=== PATIENT | female | born 1950 | race Caucasian/White ===

== ENCOUNTER 2019-10-21 00:35 | Outpatient (CLI) | payer OTHER, SELFPAY ==
[2019-10-21 16:39] LABS: SARS-CoV-2 RNA PCR Negative
== END 2019-10-21 00:36 | disposition home or self-care (01) ==
LOC: ANHCOVIDDT 00:35
PROVIDERS: Visit Provider Surgery Plastic and Reconstructive Surgery
DX: Z01.812 Encounter for preprocedural laboratory examination (principal); Z20.828 Contact with and (suspected) exposure to other viral communicable diseases
CPT/HCPCS: 87635; C9803; U0003

== ENCOUNTER 2019-10-21 08:30 | Outpatient (CLI) | payer OTHER, SELFPAY ==
--- NOTE | 2019-10-21 08:54 | ECG_ITS ---
Measurements Intervals [place] Rate: 62 P: 72 MA: 157 QRS: 26 QRSD: 98 T: 46 QT: 411 QTc: 420 Interpretive Statements SINUS RHYTHM INCOMPLETE RIGHT BUNDLE BRANCH BLOCK BORDERLINE T WAVE ABNORMALITY- ANTERIOR LEADS BORDERLINE ECG Electronically Signed On 10-21-2019 11:05:23 CDT by Osiel Christensen D.O.
[2019-10-21 09:28] LABS: Hematocrit 42.1 % (37.0-47.0); Hemoglobin 13.5 g/dL (12.0-15.0)
== END 2019-10-21 08:31 | disposition home or self-care (01) ==
PROVIDERS: Visit Provider Anesthesiology
DX: I45.10 Unspecified right bundle-branch block (principal); L57.4 Cutis laxa senilis
CPT/HCPCS: 36415; 85014; 85018; 93005

== ENCOUNTER 2019-10-24 00:46 | Day surgery (SDC) | payer OTHER, SELFPAY ==
[2019-10-17 15:50] VITALS: BMI 22.6
--- NOTE | 2019-10-23 13:15 | WPDANESEPPF ---
Anes - Initial Pre Proc Eval Procedure: Operation Date: 10/24/19 07:30 Proposed Procedures p Face Lift, - Xander Arrieta MD s Neck Lift - Xander Arrieta MD Date/Time: 10/23/19 13:15 Surgeon: Xander Arrieta MD Pre Op Diagnosis: Skin laxity Patient Data Age: 68 Gender: F Height: 5 ft 1 in Weight: 54.43 kg Allergies Allergy/AdvReac Type Severity Reaction Status Date / Time No Known Allergies Allergy Unverified 10/17/19 15:47 Home Medications Medication Instructions Recorded Confirmed Type raloxifene 60 mg PO DAILY 10/17/19 10/17/19 History Patient hx anesthesia problems: none Family hx anesthesia problems: none [facility] Past Medical History Medical History (Updated 10/23/19 @ 13:15 by Luis Armando Tolentino MD) History of varicose veins Peripheral vascular disease Social History Social History Smoking status: Never smoker Alcohol intake: never Gender identity (if verbalized by the patient): Female Anes - Eval Final PreProcedure Day of Procedure 10/23/19 13:15 Patient weight: normal Heart: regular rate and rhythm Lungs: clear to auscultation Airway: Mallampati scale class II Neurological: alert and oriented Last oral intake: >/= 8 hours ASA classification: II Emergent: no Anesthetic plan: proceed Anesthesia type and monitoring: general ETT and standard monitoring Informed Consent: The patient's anesthetic plan and its attendant risks and benefits were discussed with the patient/family/POA. Questions were solicited and answers provided to the satisfaction of the patient/family/POA.
[2019-10-24] VITALS (14 sets, daily range): BP systolic 109–161; BP diastolic 61–85; PULSE 79–101; RESP 12–18; TEMP 36.6–37.1; O2SAT 94–99
[2019-10-24] MEDS: LACTATED RINGERS 1,000 ML 30 ML IV CONT ×2 (06:45→11:53)
--- NOTE | 2019-10-24 07:06 | WPDHPUPDATE1 ---
History and Physical Update Update Date/Time: 10/24/19 07:06 History and Physical has been reviewed, including an updated exam of the patient. There are NO changes in the patient's condition. Risks, benefits, and alternatives have been discussed and questions answered. Patient agrees to proceed with procedure.
--- NOTE | 2019-10-24 07:20 | P.OP_ITS ---
Procedure Note - Detailed Date of procedure: 10/24/19 Pre-op diagnosis: Skin laxity Post-op diagnosis: same Procedure performed: Rhytidectomy Cervicoplasty Description of procedure: She was marked in the preoperative holding area. We explained asymmetries and limitations of the procedure in great detail. She was taken to the operating room placed supine on the operating room table. Anesthesia provided by anesthesiology and prepped and draped in a standard sterile fashion. Surgical time-out was taken. I used a spinal needle and tumescent solution to tumesced the face and neck for planned treatment. Fifteen blade used to make a submental incision just posterior to the crease. I elevated well-vascularized skin flaps no released retaining ligaments locally. I then divided between the platysma and elevated platysmal flaps and there was a minimal sub platysmal adiposity and none was removed. I released the platysma at the level of the hyoid bone transversely. I then elevated skin flaps bilaterally superficial leaving these well- vascularized through a retro tragal approach. Once adequate released I had anesthesia wake her some to elevate the blood pressure and make sure no active bleeding. I copiously irrigated with saline solution. Bilateral I did a SMAS plication at the inferior edge of the zygoma. This was 3-0 PDS in 2 separate layers. When I re-examined the submental platysma had previously had significant overlap now still small overlap much improved. I did a [id number] type repair using 3-0 PDS. Just prior to closure this from the left side I placed a 10 mm Ace which then passed through the platysma and sat in the sub platysmal space as well as above the platysma on the left side. Laterally 1 cm below 1 cm posterior to the mandibular angle I incised a platysmal window. I put this under gentle tension to the mastoid fascia using 3-0 PDS. On the right side I placed a 10 mm Ace drain in the subcutaneous space. Both drains were sutured into place with 3-0 Vicryl. I verified the contour the face as well as there is no bleeding. Then proceeded to closure. Skin was trimmed as necessary. Along the hairline I closed with 5 0 nylon as well as preauricular. I then went postauricular with 5 0 chromic. Xeroform fluffs and face-lift tape were placed. She tolerated the procedure well. Anesthesia: GETA Surgeon: Xander Arrieta MD Estimated blood loss (mL): 40 Drains: Yes (Bilateral Ace left is sub platysmal centrally) Packing: No Pathology: none sent Complications: No immediate complications Condition: stable Disposition: PACU
[2019-10-24] MEDS: BACITRACIN OINTMENT 15 GM TUBE 1 APPLIC TOPICAL (07:22)
[2019-10-24] MEDS: ceFAZolin 2 GM/D5W 50 ML 2 GM/50 ML BAG IVPB (07:22)
[2019-10-24 07:31] LABS: Urine Cotinine NEGATIVE
--- NOTE | 2019-10-24 11:19 | SUR.OPER ---
urine:[id number]
--- NOTE | 2019-10-24 11:25 | SUR.OPER ---
ebl:40cc
--- NOTE | 2019-10-24 12:40 | SUR.PHASEI ---
1235 - family updated on pt's status.
[2019-10-24] MEDS: LACTATED RINGERS 1,000 ML 125 ML IV CONT (13:43)
[2019-10-24] MEDS: MORPHINE SULFATE 2 MG/ML INJ IV PUSH ×3 (14:59→20:02)
--- NOTE | 2019-10-24 15:27 | OBPPTRN ---
Patient transferred to room #276 via Bed. Oriented to unit, room, information board, admission packet and security measures. Patient verbalizes understanding.
--- NOTE | 2019-10-24 16:57 | WPDPN ---
Progress Note: A&P Assessment and Plan (1) Encounter for cosmetic surgery: Code(s): Z41.1 - Encounter for cosmetic surgery Status: Acute Assessment and Plan: She is doing very well. Her symptoms postop appear to be related to local affected her wearing off. We will monitor overnight. Advanced diet. Ambulate. (2) History of varicose veins: Code(s): Z86.79 - Personal history of other diseases of the circulatory system Status: Acute (3) Osteoporosis: Code(s): M81.0 - Age-related osteoporosis without current pathological fracture Status: Acute Review of Systems Review of Systems: All systems reviewed & are unremarkable except as noted in HPI and below Exam Narrative: Exam Narrative: Normal gross vision. PERRLA EOMI. Just a slight weakness with left eyelid closure which per her nursing is a significant improvement. She is able to smile with just a slight asymmetry. She describes decreased sensation on the left side of her face. No signs of infection. No hematoma. No seroma. Const: General: no acute distress Orientation/consciousness: oriented to person HENMT: Head: normal to inspection Ears: external ears normal General nose exam: Normal external nose present Face and sinus: normal facial exam Eyes: General: appearance normal, both eyes and all related structures Periorbital: periorbital findings normal Eyelids: eyelids normal Conjunctivae: conjunctivae normal Neck: Neck: normal visual inspection Chest: Chest palpation & inspection: normal inspection of the chest Resp: Effort & Inspection: normal respiratory effort and able to speak in complete sentences GI: Inspection: normal to inspection Neuro: General: oriented to person Psych: Appearance: grossly normal Mental Status: mental status grossly normal Objective Data Vital Signs Vital Signs: Vital Signs - 24 hr 10/24/19 07:00 10/24/19 11:53 10/24/19 12:00 Temperature 36.8 C 37.1 C Pulse Rate 79 95 94 Respiratory Rate 18 14 14 Blood Pressure 161/81 H 139/85 135/84 Pulse Oximetry 99 99 99 10/24/19 12:15 10/24/19 12:30 10/24/19 12:45 Temperature Pulse Rate 89 89 Respiratory Rate 14 12 12 Blood Pressure 133/85 124/80 109/72 Pulse Oximetry 99 94 94 10/24/19 13:18 10/24/19 13:30 10/24/19 13:45 Temperature 36.8 C Pulse Rate 89 95 97 Respiratory Rate 16 16 16 Blood Pressure 129/68 126/76 124/73 Pulse Oximetry 95 94 95 10/24/19 14:00 10/24/19 14:30 10/24/19 15:00 Temperature 36.6 C Pulse Rate 101 H 94 87 Respiratory Rate 16 16 16 Blood Pressure 113/61 129/81 129/73 Pulse Oximetry 97 97 97 Intake/Output Intake/Output: Intake & Output 10/21/19 10/22/19 10/23/19 10/24/19 23:59 23:59 23:59 23:59 Intake Total 350 Output Total 30 Balance 320 Meds/Results Medications: Active Medications Generic Name Dose Route Start Last Admin Trade Name Freq PRN Reason Stop Dose Admin Docusate Sodium 100 mg 10/24/19 21:00 Colace Capsule PO Q12HR ZANE Enoxaparin Sodium 40 mg 10/25/19 09:00 Lovenox SUB-Q DAILY ZANE Lactated Ringer's 1,000 mls @ 125 mls/hr 10/24/19 11:50 10/24/19 13:43 Lr - Lactated Ringers Iv IV CONT 125 mls/hr .Q8H ZANE Administration Morphine Sulfate 2 mg 10/24/19 11:49 10/24/19 14:59 Morphine Sulfate Inj IV PUSH 2 mg Q2H PRN Administration Pain Ondansetron HCl 4 mg 10/24/19 11:49 Zofran Inj IV PUSH Q6H PRN Nausea Oxycodone/Acetaminophen 1 - 2 tablet 10/24/19 11:49 Percocet 5-325 Mg PO Q6H PRN Pain Labs Labs: Laboratory Results - last 24 hr 10/24/19 06:49 Cotinine Negative
[2019-10-25 04:20] VITALS: BP 142/78; PULSE 78; RESP 16; TEMP 36.6
[2019-10-25] MEDS: MORPHINE SULFATE 2 MG/ML INJ IV PUSH ×2 (04:35→08:09)
--- NOTE | 2019-10-25 06:40 | WPDPN ---
Progress Note: A&P Assessment and Plan (1) Encounter for cosmetic surgery: Code(s): Z41.1 - Encounter for cosmetic surgery Status: Acute Assessment and Plan: Will discharge home today when: Ambulating Tolerating p.o. Pain controlled Today we had a lengthy discussion about her care. What monitor for. What she should do at home. That we are available at any time with questions or concerns. This was a lengthy open-ended conversation making sure answered all of her questions to her satisfaction. We will see her back Wednesday. (2) History of varicose veins: Code(s): Z86.79 - Personal history of other diseases of the circulatory system Status: Acute (3) Osteoporosis: Code(s): M81.0 - Age-related osteoporosis without current pathological fracture Status: Acute Time Spent With Patient Time with patient: 15 - 25 minutes Review of Systems Review of Systems: All systems reviewed & are unremarkable except as noted in HPI and below Exam Const: General: comfortable, no acute distress, alert and awake; No acute distress Orientation/consciousness: oriented to person HENMT: Head: normal to inspection Ears: external ears normal General nose exam: Normal external nose present Face and sinus: normal facial exam Other: Cranial nerves 2-12 are grossly intact. PERRLA EOMI. Dressing was removed. She is healing well. No signs of infection. No hematoma. No seroma. Drains are serosanguineous. Eyes: General: appearance normal, both eyes and all related structures Periorbital: periorbital findings normal Eyelids: eyelids normal Conjunctivae: conjunctivae normal Neck: Neck: normal visual inspection Chest: Chest palpation & inspection: normal inspection of the chest Resp: Effort & Inspection: normal respiratory effort and able to speak in complete sentences GI: Inspection: normal to inspection Neuro: General: oriented to person Psych: Appearance: grossly normal Mental Status: mental status grossly normal Objective Data Vital Signs Vital Signs: Vital Signs - 24 hr 10/24/19 07:00 10/24/19 11:53 10/24/19 12:00 Temperature 36.8 C 37.1 C Pulse Rate 79 95 94 Respiratory Rate 18 14 14 Blood Pressure 161/81 H 139/85 135/84 Pulse Oximetry 99 99 99 10/24/19 12:15 10/24/19 12:30 10/24/19 12:45 Temperature Pulse Rate 89 89 Respiratory Rate 14 12 12 Blood Pressure 133/85 124/80 109/72 Pulse Oximetry 99 94 94 10/24/19 13:18 10/24/19 13:30 10/24/19 13:45 Temperature 36.8 C Pulse Rate 89 95 97 Respiratory Rate 16 16 16 Blood Pressure 129/68 126/76 124/73 Pulse Oximetry 95 94 95 10/24/19 14:00 10/24/19 14:30 10/24/19 15:00 Temperature 36.6 C Pulse Rate 101 H 94 87 Respiratory Rate 16 16 16 Blood Pressure 113/61 129/81 129/73 Pulse Oximetry 97 97 97 10/24/19 16:30 10/24/19 18:17 10/25/19 04:20 Temperature 36.9 C 36.9 C 36.6 C Pulse Rate 83 86 78 Respiratory Rate 16 15 16 Blood Pressure 128/70 141/82 H 142/78 H Pulse Oximetry 98 96 Intake/Output Intake/Output: Intake & Output 10/22/19 10/23/19 10/24/19 10/25/19 23:59 23:59 23:59 23:59 Intake Total 1094 Output Total 1171 Balance -77 Meds/Results Medications: Active Medications Generic Name Dose Route Start Last Admin Trade Name Freq PRN Reason Stop Dose Admin Docusate Sodium 100 mg 10/24/19 21:00 10/24/19 22:12 Colace Capsule PO Not Given Q12HR [facility] Enoxaparin Sodium 40 mg 10/25/19 09:00 Lovenox SUB-Q DAILY [facility] Morphine Sulfate 2 mg 10/24/19 11:49 10/25/19 04:35 Morphine Sulfate Inj IV PUSH 2 mg Q2H PRN Administration Pain Ondansetron HCl 4 mg 10/24/19 11:49 Zofran Inj IV PUSH Q6H PRN Nausea Oxycodone/Acetaminophen 1 - 2 tablet 10/24/19 11:49 10/24/19 22:40 Percocet 5-325 Mg PO 1 tablet Q6H PRN Administration Pain Labs Labs: Laboratory Results - last 24 hr 10/24/19 06:49 Cotinine
--- NOTE | 2019-10-25 06:46 | PM.DS ---
DS: Admitting Diagnosis Admitting Diagnosis Admitting Diagnosis: Cutis laxa senilis DS: Discharge Diagnosis Discharge Diagnosis (1) Encounter for cosmetic surgery: Code(s): Z41.1 - Encounter for cosmetic surgery Status: Acute Assessment and Plan: Discharge home. We will see her back on Wednesday. Drains are in place. (2) Osteoporosis: Code(s): M81.0 - Age-related osteoporosis without current pathological fracture Status: Acute (3) History of varicose veins: Code(s): Z86.79 - Personal history of other diseases of the circulatory system Status: Acute DS: Summary Time Spent with Patient Time attestation: Total time spent providing and/or coordinating discharge services: Exam Narrative: Exam Narrative: Normal gross vision. PERRLA EOMI. Just a slight weakness with left eyelid closure which per her nursing is a significant improvement. She is able to smile with just a slight asymmetry. She describes decreased sensation on the left side of her face. No signs of infection. No hematoma. No seroma. Const: General: no acute distress Orientation/consciousness: oriented to person HENMT: Head: normal to inspection Ears: external ears normal General nose exam: Normal external nose present Face and sinus: normal facial exam Eyes: General: appearance normal, both eyes and all related structures Periorbital: periorbital findings normal Eyelids: eyelids normal Conjunctivae: conjunctivae normal Neck: Neck: normal visual inspection Chest: Chest palpation & inspection: normal inspection of the chest Resp: Effort & Inspection: normal respiratory effort and able to speak in complete sentences GI: Inspection: normal to inspection Neuro: General: oriented to person Psych: Appearance: grossly normal Mental Status: mental status grossly normal DS: Data Data Completed and Pending Labs on day of discharge: Labs from last 24 hours 10/24/19 06:49 Cotinine Negative Discharge Plan Discharge Patient Disposition: Home, Self-Care Discharge Instructions: POST OPERATIVE DISCHARGE INSTRUCTIONS FOR Facelift / Neck Lift XANDER ARRIETA M.D. [facility] [place] [address] [address] for 24 hours after anesthesia and while you are taking pain medication. Take all prescribed medication as directed Diet as tolerated. No lifting or activity that raises blood pressure for 48 hours. Regular walking / ambulation. No showering until directed to. Once you shower do not take pain medication before showering as the combination of medication and heat may cause you to feel dizzy or pass out. No pools or tubs for 2 weeks. Call with any questions or concerns. Keep us updated with drain outputs / nursing will provide teaching. May alternate pain medication with Ibuprofen 600mg (if this does not upset stomach / cause side effects). As needed take pain medication, 3 hours later take ibuprofen, 3 hours later return to pain medication. No acetaminophen while taking pain medication. Dressing Care: Continue gentle compression 23 hours per day. If you have any questions or concerns, please call the office . If it is after hours you will be directed to the special education professional exchange. Shortness of breath, chest pain, or other medical emergency dial 911 / proceed to the Emergency Room. Follow-up/Referrals: Xander Arrieta MD [Physician] - Other (5-7 days.) Discharge Medications: New docusate sodium 100 mg Capsule 100 mg PO Q12HR Qty: 14 RF: 0 oxycodone-acetaminophen 5-325 mg Tablet 1 - 2 tablet PO Q6H PRN (Reason: Pain) Qty: 15 RF: 0 ibuprofen 600 mg tablet 600 mg PO Q6H PRN (Reason: pain) Qty: 30 RF: 0 Continued raloxifene 60 mg Tablet 60 mg PO DAILY RF: 0
[2019-10-25 07:45] VITALS: BP 140/76; PULSE 74; RESP 16; TEMP 36.7; O2SAT 98
[2019-10-25] MEDS: DOCUSATE SODIUM 100 MG CAPSULE PO (08:10)
[2019-10-25] MEDS: ENOXAPARIN 40 MG/0.4 ML SYRINGE SUB-Q (08:11)
--- NOTE | 2019-10-25 08:49 | WPDANESPN ---
Anes - Prog Note Post-Op Date/Time: 10/25/19 08:49 Cardiovascular status: normal Respiratory status: normal Airway patency: baseline Mental status: baseline Post-Op hydration status: normal Vital Signs: Last Vital Signs Temp 36.6 C 10/25/19 04:20 Pulse 78 10/25/19 04:20 Resp 16 10/25/19 04:20 BP 142/78 H 10/25/19 04:20 Pulse Ox 96 10/24/19 18:17 I/O: Intake & Output 10/24/19 10/25/19 10/25/19 23:59 07:59 15:59 Intake Total 744 Output Total 1141 Balance -397 Post-procedural complaints: none Patient Feedback: Patient satisfied with anesthetic care.
== END 2019-10-25 10:38 | disposition home or self-care (01) ==
LOC: ANHSURGERY 12:07 → ANHOB2 13:05
PROVIDERS: Visit Provider Surgery Plastic and Reconstructive Surgery
PROC: (CPT 15824; principal; 2019-10-24 07:30)
PROC: (CPT 15819; 2019-10-24 07:30)
DX: Z41.1 Encounter for cosmetic surgery (principal); L57.4 Cutis laxa senilis; I73.9 Peripheral vascular disease, unspecified; M81.0 Age-related osteoporosis without current pathological fracture; Z79.899 Other long term (current) drug therapy
CPT/HCPCS: 15829; 15819; 36415; 80307; 99199; A9270; C9290; J0131; J0171; J0690; J1100; J1170; J1650; J2250; J2270; J2405; J2704; J3010; J7120